=== PATIENT | male | born 1990 | race Caucasian/White ===

== ENCOUNTER 2020-02-28 03:07 | Emergency (ER) | payer SELFPAY ==
[2020-02-28] MEDS ORDERED: SULFAMETHOX-TMP DS 800/160 TAB ONE (03:19)
== END 2020-02-28 03:23 | disposition home or self-care (01) ==
LOC: EDH 03:07
DX: S20.412A Abrasion of left back wall of thorax, initial encounter (principal); X58.XXXA Exposure to other specified factors, initial encounter; Y93.89 Activity, other specified; Y92.89 Other specified places as the place of occurrence of the external cause; Y99.8 Other external cause status

== ENCOUNTER 2020-04-19 20:31 | Emergency (ER) | payer OTHER ==
[2020-04-19] MEDS ORDERED: ONDANSETRON HCL 4 MG/2 ML VIAL ONE (21:46)
== END 2020-04-19 23:56 | disposition home or self-care (01) ==
LOC: EDH 20:31
DX: F41.9 Anxiety disorder, unspecified (principal); R42 Dizziness and giddiness
CPT/HCPCS: 36415; 71045; 74176; 80053; 80305; 82550; 84484; 85025; 85610; 85730; 86850; 86900; 86901; 93005; 96361; 96374; 99285; G0480; J2405

== ENCOUNTER 2020-06-11 05:05 | Emergency (ER) | payer OTHER ==
[2020-06-11] MEDS ORDERED: DiphenhydrAMINE HCL 50 MG/ML VIAL ONE (05:26)
== END 2020-06-11 07:50 | disposition home or self-care (01) ==
LOC: EDH 05:05
DX: F41.9 Anxiety disorder, unspecified (principal); F19.939 Other psychoactive substance use, unspecified with withdrawal, unspecified
CPT/HCPCS: 96372; 99283; J1200